=== PATIENT | female | born 1960 | race American Indian/Alaskan Native ===

== ENCOUNTER 2022-02-08 18:01 | Emergency (ER) | payer OTHER ==
[~2022-02-08] VITALS: Ht 165.1 cm; Wt 106.1 kg
[2022-02-08 18:02] VITALS: BP 155/89
[2022-02-08] MEDS ORDERED: METH4PAK PO (21:04)
[2022-02-08] MEDS ORDERED: AZIT1POW PO (21:04)
== END 2022-02-08 23:18 | disposition home or self-care (01) ==
LOC: ER 18:01
DX: J20.9 Acute bronchitis, unspecified (principal); E11.9 Type 2 diabetes mellitus without complications
CPT/HCPCS: 71045